=== PATIENT | male | born 2000 | race Caucasian/White ===

== ENCOUNTER 2023-12-05 09:32 | Outpatient (AMB) | payer OTHER, SELFPAY ==
[2023-12-05 11:02] VITALS: BP 112/72; PULSE 65; TEMP 37.2; O2SAT 99; BMI 26.5
--- NOTE | 2023-12-05 11:02 | AM.OFFWIN_ITS ---
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 and dry skin above lip in his moustache. 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 His mother attempted to irrigate the ear with hydrogen peroxide yesterday, with symptoms a little worse today. He does have some nasal congestion, but denies sore throat, fever chills, headache, dizziness or weakness, myalgias malaise, nausea vomiting or diarrhea, or other significant associated symptoms. He reports that his son dry skin to his upper lip area, where he has some facial hair. No pain to the area, sores, discharge or leakage. No pertinent past medical history given. [facility] Social History Patient Tobacco Use Status: Never used Tobacco Review of Systems Const All systems reviewed & are unremarkable except as noted in HPI and below Physical Exam Vital Signs: Last Vital Signs Temp 99.0 F 12/05/23 11:02 Pulse 65 12/05/23 11:02 BP 112/72 12/05/23 11:02 Pulse Ox 99 12/05/23 11:02 Oxygen Delivery Method Room Air 12/05/23 11:02 BMI result Body Mass Index 26.5 Const General: cooperative, healthy appearing, comfortable, no acute distress, alert, awake, Physically active and well groomed; No anxious, diaphoretic, ill appearing, intoxicated appearing, poor hygiene or tired appearing Nutritional Appearance: average body habitus Limitations: no limitations HEENT Head: Yes normal to inspection, Yes normocephalic and Yes atraumatic Ears: hearing grossly normal bilaterally, external ears normal, TM normal on the left and Abnormal EAC present (Post irrigation, erythema and macerated area to 9 o'clock position) erythema, edema and EAC tenderness; no otic discharge General nose exam: Normal external nose present and Normal nares present Face and sinus: Yes normal facial exam, Yes sinuses nontender and Yes face symmetric Mouth: Normal oral and palatal mucosa present, lip normal (Mild dry flaking to the skin under the left upper lip/mustache area) and tongue normal Throat: Yes posterior oropharynx normal, No peritonsillar mass, No postnasal drainage, No uvular edema and No cobblestoning Resp Effort & Inspection: normal respiratory effort Skin Other: Good color, warm and dry Psych Appearance: grossly normal Mental Status: mental status grossly normal Speech and movement: Normal speech and movement present Affect: normal affect Attitude: cooperative Thought process: Normal thought process present Insight: Good insight present (Psych) Judgement: Good judgement present (Psych) Assessment & Plan Assessment & Plan (1) Otitis externa: Code(s): H60.90 - Unspecified otitis externa, unspecified ear Qualifiers: Otitis externa type: unspecified type Chronicity: acute Laterality: right Qualified Code(s): H60.501 - Unspecified acute noninfective otitis externa, right ear Plan: Patient has right otitis externa, likely due to cerumen impaction that was irrigated prior to my exam, and from using undiluted hygiene peroxide in an attempt to evacuate it home. This is caustic to skin tissue, and likely it got underneath the cerumen and the area became macerated and irritated. I wrote him for antibiotic drops that he can use. He should follow up with PCP if symptoms persist. (2) Seborrheic dermatitis: Code(s): L21.9 - Seborrheic dermatitis, unspecified Plan: Possible seborrheic dermatitis to the mustache area of the upper lip. It does not bother him, but he reports that his mother is concern, so I wrote him for some ketoconazole cream that he can use to the area until symptoms improve. 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 Medications: New ciprofloxacin-dexamethasone 0.3-0.1 % 4 drps otic (ear) right Q12H 7.5 mL 0RF 7 days ketoconazole 2% Apply to affected areas of skin 1 appl topical BID 30 grams 0RF Coding Level of Care Code New Pt Level 4 (83366) Diagnoses Acute otitis externa of right ear, unspecified type H60.501 Otitis externa type: unspecified type Chronicity: acute Laterality: right Seborrheic dermatitis L21.9
== END 2023-12-05 12:31 | disposition home or self-care (01) ==
PROVIDERS: Visit Provider Physician Assistant Medical
DX: H60.501 Unspecified acute noninfective otitis externa, right ear (principal); L21.9 Seborrheic dermatitis, unspecified
CPT/HCPCS: 99204